=== PATIENT | male | born 1960 | race Caucasian/White ===

== ENCOUNTER 2022-04-23 18:18 | Emergency (ER) | payer BC, SELFPAY ==
--- NOTE | ~2022-04-23 | XR_ITS ---
EXAMINATION: XR foot LT min 3V DATE: 04/23/2022 18:49 INDICATION: Left foot pain and swelling TECHNIQUE: Dorsoplantar, lateral, and 2 oblique views of the left foot were obtained. COMPARISON: None. FINDINGS: There is moderate osteoarthritis of the first metatarsophalangeal joint and multiple interp halangeal joints. No fracture is identified. There is soft tissue swelling of the foot. A partially i manuel intramedullary mary is noted in the tibia. IMPRESSION: 1. Soft tissue swelling and polyarticular osteoarthritis without acute osseous abnormality. Reviewed, dictated and finalized at location F.
[2022-04-23 18:25] VITALS: BP 130/75; PULSE 94; RESP 24; TEMP 37.3; O2SAT 95
[2022-04-23 18:39] VITALS: BP 130/75; PULSE 94; RESP 24; TEMP 37.3; O2SAT 95
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
== END 2022-04-23 19:23 | disposition home or self-care (01) ==
PROVIDERS: Emergency Provider Registered Nurse; PCP Internal Medicine
DX: M10.9 Gout, unspecified (principal); F17.210 Nicotine dependence, cigarettes, uncomplicated; M19.90 Unspecified osteoarthritis, unspecified site; K21.9 Gastro-esophageal reflux disease without esophagitis; I10 Essential (primary) hypertension; Z96.653 Presence of artificial knee joint, bilateral
CPT/HCPCS: 73630; 99203; G0463